=== PATIENT | female | born 1980 | race Two or more races ===

== ENCOUNTER 2019-04-09 14:45 | Observation (INO) | payer MEDICAID, OTHER ==
[2019-04-09] MEDS ORDERED: ACET-1156 PO (15:18)
[2019-04-09] MEDS ORDERED: PREN27TA7 OR (15:19)
== END 2019-04-09 15:50 | disposition home or self-care (01) | DRG 566 ==
LOC: LDRP 14:45
PROVIDERS: ADMIT Specialist; ATTEND Specialist
DX: O26.892 Other specified pregnancy related conditions, second trimester (principal); R51 Headache; R42 Dizziness and giddiness; R20.0 Anesthesia of skin; O99.89 Other specified diseases and conditions complicating pregnancy, childbirth and the puerperium; H53.8 Other visual disturbances; Z3A.20 20 weeks gestation of pregnancy
CPT/HCPCS: 59025; 81002; G0378